=== PATIENT | female | born 1965 | race Hispanic/Latino ===

== ENCOUNTER 2018-03-10 14:40 | Emergency (ER) | payer BC ==
[~2018-03-10 14:40] MED LIST: ACET-2743 PO; AMLO-127 PO; BIOT10004 PO; DEXL60CA3 PO; LORA10CA9 PO; METOPROLOL PO; PARO10TA87 PO; SIMV20TA2 PO; TRAM1TAB PO
[2018-03-10] MEDS ORDERED: ORPHENADRINE CITRATE 30 MG/ML ML ONE (15:22)
[2018-03-10] MEDS ORDERED: KETOROLAC TROMETHAMINE 30MG/ML ONE (15:22)
== END 2018-03-10 15:48 | disposition home or self-care (01) ==
LOC: EDH 14:40
DX: S40.012A Contusion of left shoulder, initial encounter (principal); S43.401A Unspecified sprain of right shoulder joint, initial encounter; I10 Essential (primary) hypertension; E78.5 Hyperlipidemia, unspecified; F32.9 Major depressive disorder, single episode, unspecified; Z98.890 Other specified postprocedural states; W01.0XXA Fall on same level from slipping, tripping and stumbling without subsequent striking against object, initial encounter; Y93.01 Activity, walking, marching and hiking; Y92.89 Other specified places as the place of occurrence of the external cause; Y99.8 Other external cause status
CPT/HCPCS: 73030; 96372 ×2; 99284; J1885; J2360

== ENCOUNTER → 2021-12-24 | Outpatient (CLI) | payer BC ==
[~2021-12-24] MED LIST changes: -AMLO-127 PO; +AMLO-143 PO; +SIMV-343 PO; -SIMV20TA2 PO; -TRAM1TAB PO; +TRAM1TAB2 PO
== END | disposition home or self-care (01) ==
LOC: RAH 12:18
PROVIDERS: ATTEND Internal Medicine
DX: Z01.811 Encounter for preprocedural respiratory examination (principal); I10 Essential (primary) hypertension
CPT/HCPCS: 71046

== ENCOUNTER 2022-01-10 06:28 | Day surgery (SDC) | payer BC ==
[2022-01-08 09:54] LABS: BASOPHILS % (AUTO) 0.8 % (0.0-5.0); EOSINOPHILS % (AUTO) 1.3 % (0.0-8.0); HEMATOCRIT 41.3 % (36-48); LYMPHOCYTES % (AUTO) 35.1 % (21.0-51.0); MEAN CORPUSCULAR HEMOGLOBIN 30.1 pg (27.0-33.0); MEAN CORPUSCULAR HGB CONC 33.4 g/dL (32.0-36.0); MONOCYTES % (AUTO) 6.9 % (3.0-13.0); NEUTROPHILS % (AUTO) 55.7 % (40.0-77.0); PLATELET COUNT (AUTO) 378 K/uL (130-400); RED BLOOD CELL COUNT(AUTO) 4.59 MIL/uL (4.00-5.50); RED CELL DISTRIBUTION WIDTH 11.9 % (11.0-15.5)
[2022-01-08 17:16] VITALS: BP 124/62
[2022-01-10] VITALS (15 sets, daily range): BP systolic 105–146; BP diastolic 55–77
[~2022-01-10] VITALS: Ht 157.5 cm; Wt 78.1 kg
[2022-01-10] MEDS: CEFAZOLIN SODIUM 1 GM VIAL IVP SCH ×2 (06:00→08:00)
[~2022-01-10 06:28] MED LIST changes: +0.9%NACL 1000ML 1,000 ML IV ONE; -ACET-2743 PO; +ALBU90AE2 IH; +ASPI-1197 PO; +AZELASTINE EN; -BIOT10004 PO; -DEXL60CA3 PO; +FAMO20TA8 PO; +LACTATED RINGERS 1000ML 1,000 ML IV SCH; -LORA10CA9 PO; +METF-444 PO; -METOPROLOL PO; -PARO10TA87 PO; +ROSU40TA21 PO; -SIMV-343 PO; -TRAM1TAB2 PO
[2022-01-10 07:11] LABS: CREATININE 0.8 mg/dL (0.5-1.5); POTASSIUM 3.8 mmol/L (3.5-5.1)
[2022-01-10] MEDS ORDERED: MIDAZOLAM HCL 1 MG/ML 2ML VIAL ONE (07:12)
[2022-01-10] MEDS ORDERED: FENTANYL CITRATE PF 50 MCG/1 ML 2ML VIAL ONE ×2 (07:13→07:22)
[2022-01-10] MEDS ORDERED: PROPOFOL 10 MG/ML 20ML VIAL IV ONE (07:13)
[2022-01-10] MEDS ORDERED: ROCURONIUM 10MG/1ML SYR 10 MG/ML ML ONE (07:22)
[2022-01-10] MEDS ORDERED: EPHEDRINE SULFATE 50 MG/ML AMPULE ONE (08:07)
[2022-01-10] MEDS ORDERED: GLYCOPYRROLATE 1 MG/5 ML SYRINGE ONE (08:26)
[2022-01-10] MEDS ORDERED: NEOSTIGMINE 5MG/5ML SYR IV ONE (08:26)
== END 2022-01-10 10:15 | disposition home or self-care (01) ==
LOC: DAH 06:28
PROVIDERS: ATTEND Obstetrics & Gynecology
DX: N95.0 Postmenopausal bleeding (principal); Z20.822 Contact with and (suspected) exposure to COVID-19; R93.89 Abnormal findings on diagnostic imaging of other specified body structures; N88.2 Stricture and stenosis of cervix uteri; N88.8 Other specified noninflammatory disorders of cervix uteri; N81.2 Incomplete uterovaginal prolapse; J45.909 Unspecified asthma, uncomplicated; I10 Essential (primary) hypertension; K21.9 Gastro-esophageal reflux disease without esophagitis; E78.00 Pure hypercholesterolemia, unspecified; F32.A Depression, unspecified; M79.7 Fibromyalgia; Z98.890 Other specified postprocedural states; Z98.891 History of uterine scar from previous surgery; Z79.82 Long term (current) use of aspirin; Z79.899 Other long term (current) drug therapy; Z79.84 Long term (current) use of oral hypoglycemic drugs
CPT/HCPCS: 86900; 87426; 84703; 85025; 86850; 86901; 36415 ×2; 58120; 80048; 82948 ×2; A6260; A4351; A4606; A4355; J3010 ×2; J0690; J3490 ×2; J2710; J7030 ×2; J2250; J2704; A4223; A4657; A4222; A4663; A4600; A4510

== ENCOUNTER → 2022-03-24 | Outpatient (CLI) | payer BC ==
[~2022-03-24] MED LIST changes: -0.9%NACL 1000ML 1,000 ML IV ONE; -LACTATED RINGERS 1000ML 1,000 ML IV SCH
== END | disposition home or self-care (01) ==
LOC: RAH 13:43
PROVIDERS: ATTEND Internal Medicine
DX: R20.0 Anesthesia of skin (principal)
CPT/HCPCS: 70450

== ENCOUNTER → 2023-06-23 | Outpatient (CLI) | payer BC ==
[2023-06-23 12:34] LABS: BASOPHILS # (AUTO) 0.06 K/uL (0.00-0.20); BASOPHILS % (AUTO) 0.9 % (0.0-5.0); EOSINOPHILS # (AUTO) 0.07 K/uL (0.00-0.70); HEMATOCRIT 42.4 % (36-48); IMMATURE GRANULOCYTE ABSOLUTE 0.02 K/uL (0-1); LYMPHOCYTES # (AUTO) 3.3 K/uL (1.0-4.8); LYMPHOCYTES % (AUTO) 47.8 % (21.0-51.0); MEAN CORPUSCULAR HEMOGLOBIN 30.1 pg (27.0-33.0); MEAN CORPUSCULAR HGB CONC 33.5 g/dL (32.0-36.0); MEAN CORPUSCULAR VOLUME 89.8 fL (79-99); MONOCYTES # (AUTO) 0.6 K/uL (0.1-1.0); MONOCYTES % (AUTO) 7.9 % (3.0-13.0); NEUTROPHILS # (AUTO) 2.9 K/uL (1.8-7.7); NEUTROPHILS % (AUTO) 42.1 % (40.0-77.0); PLATELET COUNT (AUTO) 322 K/uL (130-400); RED BLOOD CELL COUNT(AUTO) 4.72 MIL/uL (4.00-5.50); RED CELL DISTRIBUTION WIDTH 12.1 % (11.0-15.5); WHITE BLOOD COUNT (AUTO) 6.9 K/uL (4.8-10.8)
[2023-06-23 12:51] LABS: HEMOGLOBIN A1C 6.8 % (4.0-6.0)
[2023-06-23 13:01] LABS: ALBUMIN 4.2 g/dL (3.5-5.0); BILIRUBIN,TOTAL 1.4 mg/dL (0.2-1.0); CREATININE 0.8 mg/dL (0.5-1.0); POTASSIUM 3.8 mmol/L (3.5-5.1); THYROID STIMULATING HORMONE 1.77 uIU/mL (0.36-3.74); TOTAL PROTEIN, SERUM 8.1 g/dL (6.0-8.3)
== END | disposition home or self-care (01) ==
LOC: LAB 11:20
PROVIDERS: ATTEND Internal Medicine Gastroenterology
DX: R10.30 Lower abdominal pain, unspecified (principal)
CPT/HCPCS: 36415; 80053; 82465; 83036; 84443; 84478; 85025

== ENCOUNTER → 2023-06-25 | Outpatient (CLI) | payer BC ==
[~2023-06-25] MED LIST changes: +IOHEXOL-350 75 ML VIAL IV ONE
== END | disposition home or self-care (01) ==
LOC: RAH 10:50
PROVIDERS: ATTEND Internal Medicine Gastroenterology
DX: K57.32 Diverticulitis of large intestine without perforation or abscess without bleeding (principal); R10.30 Lower abdominal pain, unspecified; N99.4 Postprocedural pelvic peritoneal adhesions; M47.815 Spondylosis without myelopathy or radiculopathy, thoracolumbar region; I25.10 Atherosclerotic heart disease of native coronary artery without angina pectoris
CPT/HCPCS: 74178; Q9967

== ENCOUNTER 2023-11-06 09:17 | Emergency (ER) | payer BC ==
[~2023-11-06] VITALS: Ht 154.9 cm; Wt 84.8 kg
[~2023-11-06 09:17] MED LIST changes: -ALBU90AE2 IH; +ALBU90AE3 IH; -IOHEXOL-350 75 ML VIAL IV ONE; -ROSU40TA21 PO; +ROSU40TA70 PO
[2023-11-06] MEDS: DiphenhydrAMINE HCL 50 MG/ML VIAL IV ONE (09:39)
[2023-11-06] MEDS: FAMOTIDINE 20MG VIAL IV ONE (09:39)
[2023-11-06] MEDS: Solu-medROL 125MG VIAL IVP ONE (09:39)
[2023-11-06 09:57] VITALS: PULSE 110; RESP 22
[2023-11-06] MEDS: ALBUTEROL 0.083% 2.5 MG/3 ML INH IH ONE (10:15)
[2023-11-06] MEDS ORDERED: FAMO-136 PO (12:36)
[2023-11-06] MEDS ORDERED: DIPH-1242 PO (12:36)
[2023-11-06] MEDS ORDERED: PRED20TA3 PO (12:36)
[2023-11-06 12:55] VITALS: BP 135/62; PULSE 88; RESP 22; O2SAT 96
== END 2023-11-06 13:15 | disposition home or self-care (01) ==
LOC: EDH 09:17
DX: T78.49XA Other allergy, initial encounter (principal); L53.9 Erythematous condition, unspecified; E11.9 Type 2 diabetes mellitus without complications; I10 Essential (primary) hypertension; K21.9 Gastro-esophageal reflux disease without esophagitis; Z91.040 Latex allergy status; Z90.710 Acquired absence of both cervix and uterus; Z98.890 Other specified postprocedural states; X58.XXXA Exposure to other specified factors, initial encounter
CPT/HCPCS: 99284; 96374; 96375; 94640; J1200; J3490; J2919

== ENCOUNTER → 2025-02-06 | Outpatient (CLI) | payer BC ==
[~2025-02-06] MED LIST changes: +DIPH-1242 PO; +FAMO-136 PO; +PRED20TA3 PO; -ROSU40TA70 PO; +ROSU40TA88 PO
--- NOTE | 2025-02-07 06:17 | HMCIMG ---
EXAMINATION: DUPLEX ULTRASOUND EXAMINATION OF THE BILATERAL LOWER EXTREMITY ARTERIES. CLINICAL HISTORY: Polyneuropathy. COMPARISON: None. FINDINGS: Peak systolic velocities within the right lower arteries are as follows: Common femoral artery: 147 cm/s. Superficial femoral artery: 127 cm/s at proximal, 124 cm/s at mid, and 101 cm/s at distal segments. Popliteal artery: 85 cm/s at proximal and 82 cm/s at distal segments. Posterior tibial artery: 72 cm/s. Anterior tibial artery: 83 cm/s. Dorsalis pedis artery: 78 cm/s. The right lower limb arteries demonstrate triphasic waveforms in all arteries. Peak systolic velocities within the left lower arteries are as follows: Common femoral artery: 112 cm/s. Superficial femoral artery: 124 cm/s at proximal, 109 cm/s at mid, and 90 cm/s at distal segments. Popliteal artery: 90 cm/s at proximal and 70 cm/s at distal segments. Posterior tibial artery: 74 cm/s. Anterior tibial artery: 68 cm/s. Dorsalis pedis artery: 76 cm/s. The left lower limb arteries demonstrate triphasic to biphasic waveforms in all arteries. There is intimal wall thickening in both the lower limb arteries. IMPRESSION: Mild intimal wall thickening in both the lower limb arteries. Both lower limb arteries demonstrate triphasic to biphasic waveforms. No flow limiting lesions. /[place]
== END | disposition home or self-care (01) ==
LOC: RAH 14:32
PROVIDERS: ATTEND Internal Medicine
DX: G62.9 Polyneuropathy, unspecified (principal); R20.9 Unspecified disturbances of skin sensation
CPT/HCPCS: 93925